=== PATIENT | male | born 1980 | race Caucasian/White ===

== ENCOUNTER 2016-07-24 15:13 | Emergency (ER) | payer SELFPAY ==
--- NOTE | 2016-07-24 15:13 | EDPHY ---
H & P Constitutional: Initial Vital Signs Temperature (C) 36.4 C 07/24/16 15:13 Heart Rate 100 07/24/16 15:13 Respiratory Rate 16 07/24/16 15:13 Blood Pressure 161/98 H 07/24/16 15:13 O2 Sat (%) 99 07/24/16 15:13 O2 Delivery Mode Room Air Allergies/Adverse Reactions: morphine Allergy (Verified 07/24/16 15:31) Home Medications: Medication Instructions Recorded Propranolol HCl 07/24/16 Seroquel 07/24/16 oxyCODONE IR [Oxycodone Ir (*)] 5 - 10 mg PO Q6 PRN #20 tab 07/24/16 Medical Decision Making ED Course/Re-evaluation: CHIEF COMPLAINT: Syncope vs. seizure, right hip pain HISTORY OF PRESENT ILLNESS: The patient is a 35 y/o male arriving via EMS after syncope or possible seizure complaining of right hip pain. Per EMS, bystanders contact EMS because they believed he had a seizure. The patient was walking through a store, feeling vaguely dizzy, and suddenly lost consciousness. However, he remembers waking up on the floor and EMS denied postictal symptoms. He had immediate severe right hip pain that required heavy medication for EMS to transfer him to their bed. The patient tells me he was recently discharged from a hospital in [place] for bilateral leg rhabdomyolysis with undetermined cause. His total CK was 3100 on and 1400 on 07/11 upon discharge. He has had ongoing leg pain from this. He notes just prior to the syncope today, he was in a restaurant bathroom and his legs suddenly buckled, causing him to collapse to the floor. He denies injury from that collapse. No alcohol or illicit drugs. REVIEW OF SYSTEMS: A 10 point review of systems was performed and is negative with the exception of the elements mentioned in the history of present illness. PHYSICAL EXAM: HR, BP, O2 Sat, RR. Temp noted General Appearance: Alert, well hydrated, appropriate, and non-toxic appearing. Head: Atraumatic without scalp tenderness or obvious injury Eyes: Pupils equal, round, reactive to light and accommodation, EOMI, no trauma , no injection. Ears: Clear bilaterally, no perforation, normal landmarks Nose: Atraumatic, no rhinorrhea, clear. Throat: There is no erythema or exudates, no lesions, normal tonsils, mucus membranes moist. Neck: Supple, nontender, no lymphadenopathy. Respiratory: No retractions, no distress, no wheezes, and no accessory muscle use. Lungs are clear to auscultation bilaterally. Cardiovascular: Regular rate and rhythm, no murmurs, rubs, or gallops. Bilateral dorsalis pedis pulses intact. Good capillary refill all extremities. Gastrointestinal: Abdomen is soft, nontender, non-distended, no masses, no rebound, no guarding, no peritoneal signs. Musculoskeletal: Tenderness over right greater trochanter. Normal active ROM of upper extremities, atraumatic. Neurological: Alert, appropriate, and interactive. The patient has normal DTRs and non-focal cranial nerves, motor, sensory, and cerebellar exam. Bilateral muscle fasciculation with straight leg raise. Skin: No rashes, good turgor, no nodules on palpation. Past medical history: Recent rhabdomyolysis without clear cause; 4 TBIs Past surgical history: noncontributory Family history: noncontributory Social history: Visiting from [place]. Friend at bedside. No alcohol, illicit drugs, or tobacco use. [place]. DIAGNOSTICS/PROCEDURES/CRITICAL CARE TIME: Study: Right hip x-ray Indication: pain, trauma Results: Right hip x-ray was obtained. The results of the study are negative. The study was read by the radiologist, Dr. Hernandez. I viewed the images myself on the PACS system. Study: Pelvis CT Indication: pain, trauma Results: Pelvis CT was obtained. The results of the study are negative. The study was read by the radiologist, Dr. Hernandez. I viewed the images myself on the PACS system. DIFFERENTIAL DIAGNOSIS: The differential diagnosis for the patient's syncope and pain included but was not limited to recurrent rhabdomyolysis, vasovagal syncope, arrhythmia, dehydration, cardiogenic causes, neurogenic causes, and blood loss. MEDICAL DECISION MAKING: This is a 35 y/o male, with a recent history of rhabdomyolysis, presenting with acute right hip pain secondary to syncope or collapse this afternoon. EMS found him alert and oriented but with significant right hip pain that required 200mcg IV Fentanyl, 2.5mg IV Versed, and 6.25mg IV Phenergan to move him to their stretcher. The patient continues to complain of significant right hip pain on exam and has tenderness over his right trochanter. He has bilateral thigh fasciculations during straight leg raise and states he's had ongoing leg pain since his rhabdomyolysis admission. Plan for labs including CK, imaging, and aggressive fluid therapy, as this could likely be recurrence of his rhabdomyolysis. 1mg IV Dilaudid and 2L IV NS administered. 1620: CK is 366, significantly decreased from the patient's last labs. His pelvis CT is negative. Reassessed patient and discussed findings. I offered him admission for pain management, but he prefers discharge with pain medication and says he will return to the ED if needed. He will receive a script for OxyIR and referral to local PCP if needed. He agrees with plan. - Data Points Laboratory Results: Laboratory Results 07/24/16 15:15 07/24/16 15:15 07/24/16 07/24/16 15:15 15:15 WBC 5.81 10^3/uL 10^3/uL (3.80-9.50) RBC 5.45 10^6/uL 10^6/uL (4.40-6.38) Hgb 16.1 g/dL g/dL (13.7-17.5) Hct 49.5 % % (40.0-51.0) MCV 90.8 fL fL (81.5-99.8) MCH 29.5 pg pg (27.9-34.1) MCHC 32.5 g/dL g/dL (32.4-36.7) RDW 13.2 % % (11.5-15.2) Plt Count 274 10^3/uL 10^3/uL (150-400) MPV 10.9 fL fL (8.7-11.7) Neut % (Auto) 77.7 % H % (39.3-74.2) Lymph % (Auto) 15.3 % % (15.0-45.0) [place] % (Auto) 5.3 % % (4.5-13.0) Eos % (Auto) 0.7 % % (0.6-7.6) Baso % (Auto) 0.7 % % (0.3-1.7) Nucleat RBC Rel Count 0.0 % % (0.0-0.2) Absolute Neuts (auto) 4.51 10^3/uL 10^3/uL (1.70-6.50) Absolute Lymphs (auto) 0.89 10^3/uL L 10^3/uL (1.00-3.00) Absolute Monos (auto) 0.31 10^3/uL 10^3/uL (0.30-0.80) Absolute Eos (auto) 0.04 10^3/uL 10^3/uL (0.03-0.40) Absolute Basos (auto) 0.04 10^3/uL 10^3/uL (0.02-0.10) Absolute Nucleated RBC 0.00 10^3/uL 10^3/uL (0-0.01) Immature Gran % 0.3 % % (0.0-1.1) Immature Gran # 0.02 10^3/uL 10^3/uL (0.00-0.10) Sodium 142 mEq/L mEq/L (134-144) Potassium 4.4 mEq/L mEq/L (3.5-5.2) Chloride 100 mEq/L mEq/L (97-110) Carbon Dioxide 23 mEq/l mEq/l (22-31) Anion Gap 19 mEq/L H mEq/L (8-16) BUN 10 mg/dL mg/dL (7-23) Creatinine 1.1 mg/dL mg/dL (0.7-1.3) Estimated GFR > 60 Glucose 80 mg/dL mg/dL (70-100) Calcium 10.1 mg/dL mg/dL (8.5-10.4) Creatine Kinase 366 IU/L H IU/L (0-224) CK-MB (CK-2) Fraction Pending CK-MB (CK-2) % Pending Creatine Kinase Interp Pending Medications Given: Discontinued Medications Hydromorphone HCl (Dilaudid) 1 mg IVP EDNOW ONE Stop: 07/24/16 15:22 Last Admin: 07/24/16 15:30 Dose: 1 mg Sodium Chloride (Ns) 1,000 mls @ 0 mls/hr IV ONCE ONE PRN Reason: Wide Open Stop: 07/24/16 15:22 Last Admin: 07/24/16 15:30 Dose: 1,000 mls Sodium Chloride (Ns) 1,000 mls @ 0 mls/hr IV ONCE ONE PRN Reason: Wide Open Stop: 07/24/16 15:22 Last Admin: 07/24/16 16:06 Dose: 1,000 mls Departure - Departure Disposition: Home, Routine, Self-Care Clinical Impression: Right hip pain, Bilateral leg pain Syncope Qualifiers: Syncope type: unspecified Qualified Code(s): R55 - Syncope and collapse Condition: Good Instructions: Syncope (ED), Leg Pain (ED) Additional Instructions: 1. Use Oxy IR as prescribed. 2. Do not use ibuprofen. Increase fluid intake. 3. Follow up with your primary care provider upon return home. Referrals: Dutch Cunningham DO [Medical Doctor] - As per Instructions Prescriptions: oxyCODONE IR [Oxycodone Ir (*)] 5 - 10 mg PO Q6 PRN #20 tab PRN Reason: Pain, Severe Report Scribed for: Rodney Encinas Report Scribed by: Laine Harper Date of Report: 07/24/16 Time of Report: 15:14
[2016-07-24] MEDS ORDERED: NS 1,000 ML IV ONE ×2 (15:21)
[2016-07-24] MEDS ORDERED: HYDROmorphONE/DILAUDID 1 MG/ML SYR IVP ONE ×2 (15:21→16:36)
[2016-07-24 15:36] LABS: % IMMATURE GRANULYOCYTES 0.3 % (0.0-1.1); ABSOLUTE IMMATURE GRANULOCYTES 0.02 10^3/uL (0.00-0.10); ADD DIFF? NO; ADD MORPH? NO; ADD SCAN? NO; ATYPICAL LYMPHOCYTE FLAG 0 (0-99); FRAGMENT RBC FLAG 0 (0-99); HEMATOCRIT 49.5 % (40.0-51.0); HEMOGLOBIN 16.1 g/dL (13.7-17.5); LEFT SHIFT FLG 0 (0-99); LIPEMIA HEMOLYSIS FLAG 80 (0-99); MEAN CELL HEMOGLOBIN 29.5 pg (27.9-34.1); MEAN CELL HEMOGLOBIN CONCENTR. 32.5 g/dL (32.4-36.7); MEAN CELL VOLUME 90.8 fL (81.5-99.8); MEAN PLATELET VOLUME 10.9 fL (8.7-11.7); PLATELET CLUMPS FLAG 0 (0-99); PLATELET COUNT 274 10^3/uL (150-400); RED BLOOD CELL COUNT 5.45 10^6/uL (4.40-6.38); RED CELL DISTRIBUTION WIDTH 13.2 % (11.5-15.2)
[2016-07-24 15:40] VITALS: RESP 16
[2016-07-24] MEDS ORDERED: HYDROmorphONE/DILAUDID 1 MG/ML SYR ONE (15:47)
[2016-07-24 16:13] LABS: ANION GAP 19 mEq/L (8-16); CALCIUM 10.1 mg/dL (8.5-10.4); CARBON DIOXIDE 23 mEq/l (22-31); CHLORIDE 100 mEq/L (97-110); CREATININE 1.1 mg/dL (0.7-1.3); GLOMERULAR FILTRATION RATE > 60; GLUCOSE 80 mg/dL (70-100); POTASSIUM 4.4 mEq/L (3.5-5.2); SODIUM 142 mEq/L (134-144)
[2016-07-24 16:47] LABS: CK-MB INTERPRETATION NEGATIVE (NEGATIVE); CREATINE KINASE-MB FRACTION 3.07 ng/mL (0-3.19)
[2016-07-24 16:50] VITALS: BP 139/78; PULSE 70; TEMP 98.4; O2SAT 94
== END 2016-07-24 16:48 | disposition home or self-care (01) ==
DX: R55 Syncope and collapse (principal); M25.551 Pain in right hip; M79.604 Pain in right leg; M79.605 Pain in left leg
CPT/HCPCS: 96374; J1170